=== PATIENT | male | born 1965 | race Two or more races ===

== ENCOUNTER 2021-07-24 00:40 | Emergency (ER) | payer MEDICAID ==
[~2021-07-24] VITALS: Ht 170.2 cm; Wt 82.6 kg
[2021-07-24] MEDS ORDERED: MORPHINE SULFATE 4 MG/ML SYR/VIAL IV ONE (01:45)
[2021-07-24] MEDS ORDERED: HYDROmorphone HCL 2 MG/ML VL IV ONE ×3 (03:30→07:45)
[2021-07-24] MEDS ORDERED: HYDROcodone-ACET 10/325MG TAB PO ONE (11:15)
[2021-07-24 14:14] VITALS: BP 125/85
[2021-07-24] MEDS ORDERED: PERCOT PO (18:53)
== END 2021-07-24 14:51 | disposition home or self-care (01) ==
LOC: ER 00:40 → EDBD 00:40 → ER 14:51
DX: S92.002A Unspecified fracture of left calcaneus, initial encounter for closed fracture (principal); S92.001A Unspecified fracture of right calcaneus, initial encounter for closed fracture; I10 Essential (primary) hypertension; K21.9 Gastro-esophageal reflux disease without esophagitis; F17.210 Nicotine dependence, cigarettes, uncomplicated; W11.XXXA Fall on and from ladder, initial encounter; Y93.89 Activity, other specified; Y92.89 Other specified places as the place of occurrence of the external cause; Y99.8 Other external cause status
CPT/HCPCS: 73610; 96374; 96375; 96376; 99285; J1170; J2270